=== PATIENT | male | born 2000 | race Caucasian/White ===

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

== ENCOUNTER 2023-07-24 15:10 | Emergency (ER) | payer OTHER ==
[~2023-07-24] VITALS: Ht 165.1 cm; Wt 74.6 kg
[~2023-07-24 15:10] MED LIST: PRED20TA PO
[2023-07-24 19:51] VITALS: BP 132/60; TEMP 98.6; O2SAT 98
== END 2023-07-24 19:57 | disposition home or self-care (01) ==
LOC: M ED 15:10
DX: R20.2 Paresthesia of skin (principal); R53.1 Weakness; Y99.1 Military activity